=== PATIENT | male | born 1990 | race Caucasian/White ===

== ENCOUNTER 2020-08-02 02:25 | Emergency (ER) | payer SELFPAY ==
[~2020-08-02] VITALS: Ht 170.2 cm; Wt 77.1 kg
== END 2020-08-02 03:25 | disposition left against medical advice (07) ==
LOC: ER 02:27 → EDBD 02:27 → ER 03:25
DX: R51 Headache (principal); V43.52XA Car driver injured in collision with other type car in traffic accident, initial encounter; Y93.89 Activity, other specified; Y92.488 Other paved roadways as the place of occurrence of the external cause; Y99.8 Other external cause status